=== PATIENT | male | born 1995 | race Asian ===

== ENCOUNTER 2021-05-17 17:10 | Emergency (ER) | payer OTHER ==
[~2021-05-17] VITALS: Ht 177.8 cm; Wt 80.7 kg
[2021-05-17] MEDS ORDERED: CORTISONE CREAM TP (17:32)
[2021-05-17] MEDS ORDERED: COAL21.2 TP (18:22)
--- NOTE | 2021-05-17 18:47 | NUR ---
Patient discharged to home in stable condition. Written and verbal after care instructions given. Patient verbalizes understanding of instructions. Stressed follow up or return to ER for worsening s/s.
[2021-05-17 19:46] VITALS: BP 118/83
== END 2021-05-17 18:30 | disposition home or self-care (01) ==
LOC: ER 17:16
DX: L40.9 Psoriasis, unspecified (principal)
CPT/HCPCS: A4663